=== PATIENT | female | born 1940 | race Caucasian/White ===

== ENCOUNTER 2022-04-12 12:51 | Observation (INO) ==
[2022-04-12 13:17] LABS: ABS Eosinophils 0.2 10^3/ul (0-0.6); ABS Lymphocytes 2.5 10^3/ul (1.0-4.8); ABS Monocytes 0.7 10^3/ul (0-0.8); ABS Neutrophils 3.6 10^3/ul (1.5-7.7); Eosinophil % 2.6 %; Hematocrit 36 % (35-47); Hemoglobin 11.9 g/dL (12.0-16.0); Lymphocyte % 35.4 %; Mean Corpuscular HGB Conc 33 g/dL (31-36); Mean Corpuscular Hemoglobin 30 pg (27-31); Mean Corpuscular Volume 90 fL (80-97); Mean Platelet Volume 7.9 fL (7.4-10.4); Nucleated Red Blood Cells % 0.1; Platelet Count 296 10^3/uL (150-450); Red Blood Count 4.01 10^6 /uL (3.70-4.87); Red Cell Distribution Width 15 % (10-15)
[2022-04-12 13:25] LABS: INR 0.98 (0.88-1.18)
[2022-04-12 14:21] LABS: Albumin 4.4 g/dL (3.2-5.2); Albumin/Globulin Ratio 1.8 (1-3); Calcium 9.4 mg/dL (8.6-10.3); Globulin 2.5 g/dL (2-4); Potassium 4.1 mmol/L (3.5-5.0); Total Bilirubin 0.4 mg/dL (0.2-1.0); Total Protein 6.9 g/dL (6.4-8.9); eGFR CKD-EPI 73.3 (>60)
[2022-04-12 14:36] LABS: High Sensitivity Troponin 1 Hr 5 pg/mL (<15)
[2022-04-12] MEDS ORDERED: Iohexol 350 (CONTRAST) 500 ML MDV IV ONE (14:51)
[2022-04-12 16:18] LABS: Magnesium 2.1 mg/dL (1.9-2.7)
[2022-04-12] MEDS: Enoxaparin 40 MG/0.4 ML SYR SUBCUT SCH (17:22)
[2022-04-12] MEDS ORDERED: Nitroglycerin 0.3 mg TAB SL PRN (20:14)
[2022-04-13 07:49] LABS: ABS Basophils 0.1 10^3/ul (0-0.2); ABS Eosinophils 0.3 10^3/ul (0-0.6); ABS Lymphocytes 1.8 10^3/ul (1.0-4.8); ABS Monocytes 0.5 10^3/ul (0-0.8); ABS Neutrophils 2.7 10^3/ul (1.5-7.7); Eosinophil % 5.2 %; Hematocrit 38 % (35-47); Hemoglobin 12.7 g/dL (12.0-16.0); Lymphocyte % 33.3 %; Mean Corpuscular HGB Conc 33 g/dL (31-36); Mean Corpuscular Hemoglobin 30 pg (27-31); Mean Corpuscular Volume 90 fL (80-97); Mean Platelet Volume 8.3 fL (7.4-10.4); Nucleated Red Blood Cells % 0.1; Platelet Count 315 10^3/uL (150-450); Red Blood Count 4.21 10^6 /uL (3.70-4.87); Red Cell Distribution Width 15 % (10-15); White Blood Count 5.3 10^3/uL (3.5-10.8)
[2022-04-13 08:12] LABS: INR 1.02 (0.88-1.18)
[2022-04-13 08:17] LABS: Albumin 4.3 g/dL (3.2-5.2); Albumin/Globulin Ratio 1.9 (1-3); Calcium 9.3 mg/dL (8.6-10.3); Globulin 2.3 g/dL (2-4); HDL Cholesterol 80.2 mg/dL; Potassium 4.5 mmol/L (3.5-5.0); Total Bilirubin 0.5 mg/dL (0.2-1.0); Total Protein 6.6 g/dL (6.4-8.9); eGFR CKD-EPI 79.2 (>60)
[2022-04-13] MEDS ORDERED: Nicotine PATCH 21 MG/24 HR PATCH TRANSDERM SCH (09:05)
[2022-04-13] MEDS: Aspirin EC 81 mg TAB.EC (enteric coated) PO SCH (09:38)
[2022-04-13] MEDS: Enoxaparin 40 MG/0.4 ML SYR SUBCUT SCH (17:23)
[2022-04-14 11:42] VITALS: BP 151/93
[2022-04-14] MEDS: Aspirin EC 81 mg TAB.EC (enteric coated) PO SCH (14:10)
== END 2022-04-14 14:15 | disposition home or self-care (01) ==
LOC: EDHOLD 12:51 → ED 12:51 → SUATTDRO 15:32 → EDHOLD 18:08 → MEDTELE 18:49
PROVIDERS: ADMIT Internal Medicine; ATTEND Hospitalist